=== PATIENT | female | born 1950 ===

== ENCOUNTER 2017-12-01 10:26 | Day surgery (SDC) | payer MEDICARE, OTHER ==
[2017-11-23 10:37] VITALS: BMI 27.1
[2017-12-01 10:50] VITALS: RESP 18
[2017-12-01] MEDS ORDERED: Propofol 10 mg/ml Inj (20 ML) ONE (14:55)
[2017-12-01] MEDS ORDERED: Sodium Chloride 0.9% 1,000 ML IV SCH (15:15)
[2017-12-01 16:21] VITALS: BP 137/76; PULSE 84; TEMP 98; O2SAT 100
== END 2017-12-01 16:40 | disposition home or self-care (01) ==
LOC: ENDO 10:26
PROVIDERS: ATTEND Internal Medicine Gastroenterology
DX: K21.9 Gastro-esophageal reflux disease without esophagitis (principal); Z12.11 Encounter for screening for malignant neoplasm of colon; K29.50 Unspecified chronic gastritis without bleeding; K44.9 Diaphragmatic hernia without obstruction or gangrene; K64.8 Other hemorrhoids; K64.4 Residual hemorrhoidal skin tags
CPT/HCPCS: 43239; 45378; 88305; 88342; J2001; J2704; J7040 ×2